=== PATIENT | female | born 1980 | race Hispanic/Latino ===

== ENCOUNTER 2020-11-11 12:16 | Inpatient (IN) | payer SELFPAY ==
[~2020-11-11] VITALS: Ht 152.4 cm; Wt 65.4 kg
[2020-11-11] MEDS ORDERED: HYDROCODONE/ACETAMINOPHEN 10/325 MG TAB ONE (12:44)
[2020-11-11 14:47] LABS: BASOPHILS % (AUTO) 0.3 % (0.0-5.0); EOSINOPHILS % (AUTO) 0.7 % (0.0-8.0); HEMATOCRIT 39.6 % (36-48); LYMPHOCYTES % (AUTO) 14.2 % (21.0-51.0); MEAN CORPUSCULAR HEMOGLOBIN 30.4 pg (27.0-33.0); MEAN CORPUSCULAR HGB CONC 34.6 g/dL (32.0-36.0); MEAN CORPUSCULAR VOLUME 87.8 fL (79-99); MONOCYTES % (AUTO) 2.7 % (3.0-13.0); NEUTROPHILS % (AUTO) 81.8 % (40.0-77.0); PLATELET COUNT (AUTO) 334 K/uL (130-400); RED BLOOD CELL COUNT(AUTO) 4.51 MIL/uL (4.00-5.50); RED CELL DISTRIBUTION WIDTH 12.3 % (11.0-15.5); WHITE BLOOD COUNT (AUTO) 14.4 K/uL (4.8-10.8)
[2020-11-11 15:02] LABS: CREATININE 0.8 mg/dL (0.5-1.5); POTASSIUM 3.7 mmol/L (3.5-5.1)
[2020-11-11 15:05] LABS: INR 0.92 (0.85-1.15); PROTHROMBIN TIME 9.9 SEC (9.6-11.6)
[2020-11-11 15:06] LABS: PARTIAL THROMBOPLASTIN TIME 27.8 SEC (26.3-35.5)
[2020-11-11 15:12] LABS: ALBUMIN 4.2 g/dL (3.5-5.0); BILIRUBIN,TOTAL 1.6 mg/dL (0.2-1.0); TOTAL PROTEIN, SERUM 8.1 g/dL (6.0-8.3)
[2020-11-11] MEDS ORDERED: LACTATED RINGERS 1000ML 1,000 ML IV ONE (15:26)
[2020-11-11] MEDS ORDERED: HYDROMORPHONE HCL 0.5 MG/0.5 ML ML ONE (20:55)
[2020-11-12] VITALS (7 sets, daily range): BP systolic 103–121; BP diastolic 61–76
[2020-11-12] MEDS ORDERED: HYDROMORPHONE HCL 0.5 MG/0.5 ML ML ONE (00:17)
[2020-11-12] MEDS ORDERED: LACTATED RINGERS 1000ML 1,000 ML IV ONE (00:30)
[2020-11-12] MEDS ORDERED: TETANUS/DIPHTHERIA TOXOID [ADULT] 0.5 ML VIAL IM ONE (00:42)
[2020-11-12] MEDS: HYDROMORPHONE HCL 0.5 MG/0.5 ML ML IVP PRN ×5 (06:41→23:53)
[2020-11-12 08:08] LABS: BASOPHILS % (AUTO) 0.3 % (0.0-5.0); EOSINOPHILS % (AUTO) 3.3 % (0.0-8.0); HEMATOCRIT 33.9 % (36-48); LYMPHOCYTES % (AUTO) 22.7 % (21.0-51.0); MEAN CORPUSCULAR HEMOGLOBIN 29.9 pg (27.0-33.0); MEAN CORPUSCULAR HGB CONC 33.6 g/dL (32.0-36.0); NEUTROPHILS % (AUTO) 68.3 % (40.0-77.0); PLATELET COUNT (AUTO) 270 K/uL (130-400); RED BLOOD CELL COUNT(AUTO) 3.81 MIL/uL (4.00-5.50); RED CELL DISTRIBUTION WIDTH 12.4 % (11.0-15.5); WHITE BLOOD COUNT (AUTO) 9.5 K/uL (4.8-10.8)
[2020-11-12 08:30] LABS: CREATININE 0.6 mg/dL (0.5-1.5); PHOSPHORUS 3.5 mg/dL (2.5-4.9); POTASSIUM 3.4 mmol/L (3.5-5.1)
[2020-11-12] MEDS: LACTATED RINGERS 1000ML 1,000 ML IV SCH ×2 (10:43→18:35)
[2020-11-12] MEDS ORDERED: POTASSIUM CHLORIDE 20 MEQ ERTAB PO SCH (14:00)
--- NOTE | 2020-11-12 15:59 | NUR ---
INITIAL SW met with patient. She states she lives with spouse, Pasha Jolly. No home services. DME: [employer], [employer]. Patient states she was working but is not working at this time. Patient states she is able to complete ADL's independent and drives although she is presently not driving. PCP is Dr. Day. Pharmacy is [facility] located in [place]. DCP is home. Patient has no insurance or benefits. She is a [place] citizen and has worked in the . Patient was provided with community resources for post hospitalization follow up. Patient was also provided with Good RX card for prescriptions and educated on [facility] $4 medication program and [employer] $5 medication program. Patient is being assisted by [employer] for financial matters. Addendum: 11/12/20 at 1602 by KENISHA TIMMONS SS Amended: Links added.
[2020-11-13] VITALS (24 sets, daily range): BP systolic 96–119; BP diastolic 52–77
[2020-11-13] MEDS: LACTATED RINGERS 1000ML 1,000 ML IV SCH ×3 (03:11→22:00)
[2020-11-13] MEDS: HYDROMORPHONE HCL 0.5 MG/0.5 ML ML IVP PRN (04:02)
[2020-11-13 05:54] LABS: HEMATOCRIT 34.7 % (36-48); MEAN CORPUSCULAR HEMOGLOBIN 30.1 pg (27.0-33.0); MEAN CORPUSCULAR VOLUME 88.5 fL (79-99); PLATELET COUNT (AUTO) 256 K/uL (130-400); RED BLOOD CELL COUNT(AUTO) 3.92 MIL/uL (4.00-5.50); RED CELL DISTRIBUTION WIDTH 12.4 % (11.0-15.5); WHITE BLOOD COUNT (AUTO) 10.1 K/uL (4.8-10.8)
[2020-11-13 06:42] LABS: CREATININE 0.7 mg/dL (0.5-1.5); POTASSIUM 3.7 mmol/L (3.5-5.1)
[2020-11-13] MEDS ORDERED: ROPIVACAINE 0.5% 5MG/ML 30ML IJ ONE (07:37)
[2020-11-13] MEDS ORDERED: SUCCINYLCHOLINE CHLORIDE 20 MG/ML 10 ML VIAL ONE ×2 (07:37→08:51)
[2020-11-13] MEDS ORDERED: LIDOCAINE PF 2% 5ML ABBOJECT ONE ×2 (07:37→08:51)
[2020-11-13] MEDS ORDERED: GLYCOPYRROLATE 1 MG/5 ML SYRINGE ONE (07:38)
[2020-11-13] MEDS ORDERED: ONDANSETRON HCL 4 MG/2 ML VIAL ONE (07:38)
[2020-11-13] MEDS ORDERED: NEOSTIGMINE 5MG/5ML SYR IV ONE (07:38)
[2020-11-13] MEDS ORDERED: DEXAMETHASONE SOD PHOSPHATE 10MG/ML 1ML VIAL ONE (07:38)
[2020-11-13] MEDS ORDERED: PROPOFOL 10 MG/ML 20ML VIAL IV ONE ×2 (07:38→08:42)
[2020-11-13] MEDS ORDERED: FENTANYL CITRATE PF 50 MCG/1 ML 2ML VIAL ONE ×2 (07:39→08:30)
[2020-11-13] MEDS ORDERED: ROCURONIUM 10MG/1ML SYR 10 MG/ML ML ONE (07:39)
[2020-11-13] MEDS ORDERED: MIDAZOLAM HCL 1 MG/ML 2ML VIAL ONE (07:39)
[2020-11-13] MEDS ORDERED: VANCOMYCIN 1GM+NS 250ML 250 ML IV ONE (07:59)
[2020-11-13 09:16] LABS: EOSINOPHILS % (MANUAL) 4 % (1-6); LYMPHOCYTES % (MANUAL) 23 % (22-44); MONOCYTES % (MANUAL) 3 % (2-9); REACTIVE LYMPHOCYTES 5 % (0-0); SEGMENTED NEUTROPHILS % 65 % (40-70)
[2020-11-13 09:17] LABS: MAN.DIFF COMMENT-IMPRESSION MANUAL DIFFERENTIAL; PLATELET MORPHOLOGY COMMENT ADEQUATE
[2020-11-13] MEDS ORDERED: VANCOMYCIN HCL 1 GM VIAL ONE (09:26)
--- NOTE | 2020-11-13 19:05 | NUR ---
CALLED TO DR MARKS REGARDING PATIENT C/O OF BLOOD WHEN WIPING HERSELF. SHE ALSO STATED MIGHT BE AN EARLY MENSTRUAL WELL . PER MD STATED FOR PATIENT NOT TO WORRY THAT ITS NOT FROM SURGERY AND IF THERE IS OTHER CONCERN FOR PRIMARY TO FOLLOW UP . INFORMED PATIENT AND WILL CONT TO MONITOR
--- NOTE | 2020-11-13 20:00 | NUR ---
POST ORIF Pt is post orif,as per report pt had a blocking agent in or and md told her it will last 18 hrs. Addendum: 11/13/20 at 2307 by SHANNON PALAFOX RN RN Amended: Links added.
[2020-11-14] VITALS (7 sets, daily range): BP systolic 100–126; BP diastolic 57–84
[2020-11-14] MEDS: HYDROMORPHONE HCL 0.5 MG/0.5 ML ML IVP PRN ×4 (05:31→19:09)
[2020-11-14] MEDS: LACTATED RINGERS 1000ML 1,000 ML IV SCH ×3 (06:00→19:08)
--- NOTE | 2020-11-14 06:31 | NUR ---
PAIN Pt medicated with Dilaudid for c/o of pain to RLE.
[2020-11-14] MEDS: CYCLOBENZAPRINE HCL 10 MG TABLET PO PRN ×2 (08:00→16:53)
[2020-11-14] MEDS: ACETAMINOPHEN-CODEINE 300/30MG TAB PO PRN ×2 (08:02→16:52)
--- NOTE | 2020-11-14 13:42 | NUR ---
DR YASIR COOLEY ROUNDED ON PATIENT AND ORDERS RECEIVED FOR CBC AND CMP IN AM ORDERS PLACED
[2020-11-15 03:57] VITALS: BP 115/73
[2020-11-15] MEDS: HYDROMORPHONE HCL 0.5 MG/0.5 ML ML IVP PRN (04:28)
--- NOTE | 2020-11-15 04:48 | NUR ---
PATIENT ALERT AND ORIENTED TIMES 3. SHE HAS HAD HER FOOT ELEVATED ALL NIGHT. SHE USES THE WALKER TO GO TO THE RESTROOM. SHE IS PASSING GAS, BUT HAS NOT BEEN ABLE TO HAVE A BOWEL MOVEMENT PROBABLY FROM HER REQUEST FOR DILAUDID EVERY 4 HOURS. SHE WILL BE DISCHARGED TODAY. PENDING OFFICIAL ORDER FROM DR. MADISON.
[2020-11-15 06:00] LABS: BASOPHILS % (AUTO) 0.5 % (0.0-5.0); EOSINOPHILS % (AUTO) 5.2 % (0.0-8.0); HEMATOCRIT 34.3 % (36-48); LYMPHOCYTES % (AUTO) 26.7 % (21.0-51.0); MEAN CORPUSCULAR HEMOGLOBIN 30.1 pg (27.0-33.0); MEAN CORPUSCULAR HGB CONC 32.9 g/dL (32.0-36.0); MEAN CORPUSCULAR VOLUME 91.5 fL (79-99); MONOCYTES % (AUTO) 6.9 % (3.0-13.0); NEUTROPHILS % (AUTO) 60.3 % (40.0-77.0); PLATELET COUNT (AUTO) 276 K/uL (130-400); RED BLOOD CELL COUNT(AUTO) 3.75 MIL/uL (4.00-5.50); RED CELL DISTRIBUTION WIDTH 12.5 % (11.0-15.5); WHITE BLOOD COUNT (AUTO) 11.7 K/uL (4.8-10.8)
[2020-11-15] MEDS: LACTATED RINGERS 1000ML 1,000 ML IV SCH (06:00)
[2020-11-15 06:18] LABS: ALBUMIN 3.2 g/dL (3.5-5.0); BILIRUBIN,TOTAL 0.7 mg/dL (0.2-1.0); CREATININE 0.7 mg/dL (0.5-1.5); POTASSIUM 3.5 mmol/L (3.5-5.1); TOTAL PROTEIN, SERUM 6.6 g/dL (6.0-8.3)
[2020-11-15 08:04] VITALS: BP 105/63
--- NOTE | 2020-11-15 13:11 | NUR ---
IV REMOVED W/O DIFFICULTY OR COMPLICATION. DISCHARGE INSTRUCTIONS UNDERSTOOD BY PATIENT AND SPOUSE. PT DISMISSED BY W/C IN GOOD CONDITION ACCOMPANIED BY SPOUSE AND STAFF
== END 2020-11-15 13:17 | disposition home or self-care (01) | DRG 494 ==
LOC: EDH 12:16 → EDHIP 12:17 → UNDOADMIN 13:29 → 3CH 11-12 02:47
PROVIDERS: ADMIT Internal Medicine Nephrology; ATTEND Internal Medicine Nephrology
PROC: 0QSG04Z Reposition Right Tibia with Internal Fixation Device, Open Approach (ICD-10-PCS; principal; 2020-11-13 08:10)
PROC: 3E0T3BZ Introduction of Anesthetic Agent into Peripheral Nerves and Plexi, Percutaneous Approach (ICD-10-PCS; 2020-11-13 08:10)
PROC: 3E0T33Z Introduction of Anti-inflammatory into Peripheral Nerves and Plexi, Percutaneous Approach (ICD-10-PCS; 2020-11-13 08:10)
DX: S82.301A Unspecified fracture of lower end of right tibia, initial encounter for closed fracture (principal); D64.9 Anemia, unspecified; R53.81 Other malaise; E87.8 Other disorders of electrolyte and fluid balance, not elsewhere classified; I10 Essential (primary) hypertension; Z20.828 Contact with and (suspected) exposure to other viral communicable diseases; W20.8XXA Other cause of strike by thrown, projected or falling object, initial encounter; Z88.0 Allergy status to penicillin; Z88.8 Allergy status to other drugs, medicaments and biological substances; Y93.89 Activity, other specified; Y92.098 Other place in other non-institutional residence as the place of occurrence of the external cause; Y99.8 Other external cause status
CPT/HCPCS: 36415; 73590; 73600; 73700; 80048; 80053; 84100; 84702; 85025; 85610; 85730; 87426; 90714; 97039; G0378; J0330; J1100; J1170; J2001; J2250; J2405; J2704; J2710; J2795; J3010; J3370; J3490; J7120; U0003